=== PATIENT | male | born 1975 | race Asian ===

== ENCOUNTER 2016-11-14 20:44 | Emergency (ER) | payer OTHER ==
[~2016-11-14] VITALS: Ht 170.2 cm; Wt 81.8 kg
[2016-11-14 21:58] VITALS: BP 135/88
== END 2016-11-14 22:15 | disposition home or self-care (01) ==
LOC: EMS 20:46
DX: K02.9 Dental caries, unspecified (principal); Z88.8 Allergy status to other drugs, medicaments and biological substances
CPT/HCPCS: 99283

== ENCOUNTER 2017-01-30 14:00 | Emergency (ER) | payer OTHER ==
[~2017-01-30] VITALS: Ht 170.2 cm; Wt 79.5 kg
[2017-01-30 15:09] LABS: BASOPHILS % (AUTO) 0.2 % (0.0-2.0); EOSINOPHILS % (AUTO) 0.7 % (1.0-6.0); HEMOGLOBIN 15.5 g/dL (13.5-17.5); LYMPHOCYTES # (AUTO) 1.3 K/uL (1.0-4.8); LYMPHOCYTES % (AUTO) 16.8 % (22.0-44.0); MEAN CORPUSCULAR HEMOGLOBIN 30.2 pg (26.0-34.0); MEAN CORPUSCULAR HGB CONC 33.8 G/dL (31.0-37.0); MEAN CORPUSCULAR VOLUME 89 fL (80-100); MONOCYTES # (AUTO) 0.7 K/uL (0.1-1.0); MONOCYTES % (AUTO) 8.3 % (2.0-9.0); NEUTROPHILS # (AUTO) 5.9 K/uL (1.8-7.7); PLATELET COUNT (AUTO) 302 K/uL (150-450); RED BLOOD CELL COUNT(AUTO) 5.15 MIL/uL (4.50-5.90); RED CELL DISTRIBUTION WIDTH 14.4 % (11.5-14.5)
[2017-01-30 15:11] LABS: ANION GAP 9 mmol/L (8-16); CALCIUM, TOTAL 9.3 mg/dL (8.8-10.5); CARBON DIOXIDE 30 mmol/L (22-29); CHLORIDE 103 mmol/L (98-107); CREATININE 1.05 mg/dL (0.60-1.30); GLOMERULAR FILTR. RATE CALC > 60 mL/min (>60); POTASSIUM 4.4 mmol/L (3.5-5.1); SODIUM SERUM 142 mmol/L (136-145); UREA NITROGEN, BLOOD 32 mg/dL (7-18)
[2017-01-30 15:17] LABS: ALANINE AMINOTRANSFERASE 47 U/L (12-78); ALBUMIN 4.2 g/dL (3.4-5.0); ASPARTATE AMINOTRANSFERASE 35 U/L (15-37); BILIRUBIN,TOTAL 0.8 mg/dL (0.1-1.0); TOTAL PROTEIN, SERUM 7.9 g/dL (6.4-8.2)
[2017-01-30] MEDS ORDERED: CloNIDine HCL 0.1 MG TABLET PO ONE (15:30)
[2017-01-30 16:00] VITALS: BP 133/98
== END 2017-01-30 16:35 | disposition home or self-care (01) ==
LOC: EMS 14:04
DX: I10 Essential (primary) hypertension (principal); F17.210 Nicotine dependence, cigarettes, uncomplicated; F12.10 Cannabis abuse, uncomplicated; Z88.8 Allergy status to other drugs, medicaments and biological substances
CPT/HCPCS: 93005; 99285

== ENCOUNTER 2019-04-17 20:26 | Inpatient (IN) | payer OTHER ==
[~2019-04-17] VITALS: Ht 170.2 cm; Wt 84.2 kg
[2019-04-17] MEDS ORDERED: KETOROLAC TROMETHAMINE 30 MG/ML VIAL IVP ONE (22:00)
[2019-04-17] MEDS ORDERED: SODIUM CHLORIDE 0.9% 1,000 ML IV ONE (22:00)
[2019-04-17] MEDS ORDERED: MORPHINE SULFATE 4 MG/ML SYRINGE IVP ONE (22:00)
[2019-04-17] MEDS ORDERED: ONDANSETRON HCL 4 MG/2 ML VIAL IVP ONE (22:00)
[2019-04-17 22:24] LABS: BASOPHILS % (AUTO) 0.2 % (0.0-2.0); EOSINOPHILS % (AUTO) 0 % (1.0-6.0); HEMATOCRIT 46.8 % (41-53); HEMOGLOBIN 15.9 g/dL (13.5-17.5); LYMPHOCYTES # (AUTO) 0.8 K/uL (1.0-4.8); LYMPHOCYTES % (AUTO) 5.3 % (22.0-44.0); MEAN CORPUSCULAR HEMOGLOBIN 29.4 pg (26.0-34.0); MEAN CORPUSCULAR HGB CONC 34.1 G/dL (31.0-37.0); MEAN CORPUSCULAR VOLUME 86 fL (80-100); MONOCYTES # (AUTO) 0.8 K/uL (0.1-1.0); MONOCYTES % (AUTO) 5.8 % (2.0-9.0); NEUTROPHILS % (AUTO) 88.7 % (40.0-70.0); PLATELET COUNT (AUTO) 256 K/uL (150-450); RED BLOOD CELL COUNT(AUTO) 5.42 MIL/uL (4.50-5.90); RED CELL DISTRIBUTION WIDTH 13.9 % (11.5-14.5)
[2019-04-17] MEDS ORDERED: SODIUM CHLORIDE 0.9% 100 ML ONE (22:26)
[2019-04-17] MEDS ORDERED: IOVERSOL 350 MG/ML 100 ML VIAL ONE (22:26)
[2019-04-17 22:32] LABS: ANION GAP 9 mmol/L (8-16); CARBON DIOXIDE 29 mmol/L (22-29); CHLORIDE 99 mmol/L (98-107); CREATININE 0.99 mg/dL (0.60-1.30); GLUCOSE,RANDOM 130 mg/dL (70-110); POTASSIUM 3.9 mmol/L (3.5-5.1); SODIUM SERUM 137 mmol/L (136-145); UREA NITROGEN, BLOOD 16 mg/dL (7-18)
[2019-04-17 22:33] LABS: CALCIUM, TOTAL 9.5 mg/dL (8.8-10.5); GLOMERULAR FILTR. RATE CALC > 60 mL/min (>60)
[2019-04-17 22:38] LABS: ALANINE AMINOTRANSFERASE 44 U/L (12-78); ALBUMIN 4.3 g/dL (3.4-5.0); ALKALINE PHOSPHATASE 55 U/L (46-116); ASPARTATE AMINOTRANSFERASE 34 U/L (15-37); BILIRUBIN,TOTAL 0.6 mg/dL (0.1-1.0); LIPASE 88 U/L (73-393); TOTAL PROTEIN, SERUM 8.4 g/dL (6.4-8.2)
[2019-04-17] MEDS ORDERED: PIPERACILLIN/TAZO 3.375 GM/D5W 50 ML IV ONE (23:15)
[2019-04-17 23:37] LABS: APPEARANCE,URINE CLEAR (CLEAR); BILIRUBIN,URINE NEGATIVE (NEGATIVE); GLUCOSE, URINE (UA) NEGATIVE (NEGATIVE); KETONES,URINE NEGATIVE (NEGATIVE); LEUKOCYTE ESTERASE ,URINE NEGATIVE (NEGATIVE); NITRATE,URINE NEGATIVE (NEGATIVE); OCCULT BLOOD,URINE NEGATIVE (NEGATIVE); PH,URINE 6.5 (5.0-8.0); PROTEIN,URINE NEGATIVE (NEGATIVE); UROBILINOGEN,URINE 0.2 mg/dL (<=1.0)
[2019-04-17] MEDS ORDERED: 0.9% SODIUM CHLORIDE 10 ML SYRINGE IVP PRN (23:45)
[2019-04-17] MEDS ORDERED: ONDANSETRON HCL 4 MG/2 ML VIAL IVP PRN (23:45)
[2019-04-18] MEDS: SODIUM CHLORIDE 0.9% 1,000 ML IV SCH ×3 (00:08→20:43)
[2019-04-18] MEDS ORDERED: SODIUM CHLORIDE 0.9% 1,000 ML IV ONE (00:45)
[2019-04-18] MEDS ORDERED: MORPHINE SULFATE 4 MG/ML SYRINGE IVP ONE (05:30)
[2019-04-18] MEDS ORDERED: MORPHINE SULFATE 10 MG/ML SYRINGE IVP ONE (05:30)
[2019-04-18] MEDS: PIPERACILLIN/TAZO 3.375 GM/D5W 50 ML IV SCH ×3 (05:52→17:47)
[2019-04-18 06:51] LABS: BASOPHILS % (AUTO) 0.1 % (0.0-2.0); EOSINOPHILS % (AUTO) 0.1 % (1.0-6.0); HEMATOCRIT 41.1 % (41-53); HEMOGLOBIN 13.9 g/dL (13.5-17.5); LYMPHOCYTES # (AUTO) 0.9 K/uL (1.0-4.8); LYMPHOCYTES % (AUTO) 7.6 % (22.0-44.0); MEAN CORPUSCULAR HEMOGLOBIN 29.4 pg (26.0-34.0); MEAN CORPUSCULAR HGB CONC 33.9 G/dL (31.0-37.0); MEAN CORPUSCULAR VOLUME 87 fL (80-100); MONOCYTES # (AUTO) 0.5 K/uL (0.1-1.0); MONOCYTES % (AUTO) 4.5 % (2.0-9.0); NEUTROPHILS # (AUTO) 10.4 K/uL (1.8-7.7); PLATELET COUNT (AUTO) 244 K/uL (150-450); RED BLOOD CELL COUNT(AUTO) 4.74 MIL/uL (4.50-5.90)
[2019-04-18 06:54] LABS: NEUTROPHILS % (AUTO) 87.7 % (40.0-70.0)
[2019-04-18] MEDS ORDERED: SODIUM CL IRRIG SOLN BAG 3,000 ML IRRIG ONE (06:59)
[2019-04-18] MEDS ORDERED: BUPIVACAINE 0.25%/EPI 1:200,000/PF 10 ML VIAL ONE (06:59)
[2019-04-18] MEDS ORDERED: FentaNYL CITRATE-PF 100 MCG/2 ML VIAL IVP PRN (07:15)
[2019-04-18] MEDS ORDERED: MEPERIDINE-PF 25 MG/ML VIAL IVP PRN (07:15)
[2019-04-18] MEDS ORDERED: HYDROmorphone 2 MG/ML SYRINGE IVP PRN (07:15)
[2019-04-18 07:16] LABS: ANION GAP 5 mmol/L (8-16); CALCIUM, TOTAL 8.1 mg/dL (8.8-10.5); CARBON DIOXIDE 29 mmol/L (22-29); CHLORIDE 102 mmol/L (98-107); CREATININE 1.11 mg/dL (0.60-1.30); GLOMERULAR FILTR. RATE CALC > 60 mL/min (>60); GLUCOSE,RANDOM 124 mg/dL (70-110); POTASSIUM 4.2 mmol/L (3.5-5.1); SODIUM SERUM 136 mmol/L (136-145); UREA NITROGEN, BLOOD 15 mg/dL (7-18)
[2019-04-18] MEDS: OXYGEN THERAPY IH SCH ×2 (08:00→20:00)
[2019-04-18 09:58] VITALS: BP 133/78
[2019-04-18 11:27] VITALS: BP 140/87
[2019-04-18] MEDS ORDERED: METR500 PO (12:05)
[2019-04-18] MEDS ORDERED: CIPR-278 PO (12:05)
[2019-04-18 15:20] VITALS: BP 121/75
[2019-04-18] MEDS: HYDROCODONE/ACETAMINOPHEN 5-325 MG TABLET PO PRN ×2 (15:46→20:42)
[2019-04-18] MEDS: IBUPROFEN 600 MG TABLET PO SCH (17:47)
[2019-04-18 18:17] LABS: BASOPHILS % (AUTO) 0.2 % (0.0-2.0); EOSINOPHILS % (AUTO) 0 % (1.0-6.0); HEMATOCRIT 39.6 % (41-53); HEMOGLOBIN 13.4 g/dL (13.5-17.5); LYMPHOCYTES % (AUTO) 6.5 % (22.0-44.0); MEAN CORPUSCULAR HEMOGLOBIN 29.3 pg (26.0-34.0); MEAN CORPUSCULAR HGB CONC 33.7 G/dL (31.0-37.0); MEAN CORPUSCULAR VOLUME 87 fL (80-100); MONOCYTES # (AUTO) 0.6 K/uL (0.1-1.0); MONOCYTES % (AUTO) 3.5 % (2.0-9.0); NEUTROPHILS # (AUTO) 14.2 K/uL (1.8-7.7); PLATELET COUNT (AUTO) 229 K/uL (150-450); RED BLOOD CELL COUNT(AUTO) 4.57 MIL/uL (4.50-5.90); RED CELL DISTRIBUTION WIDTH 13.9 % (11.5-14.5)
[2019-04-18 18:18] LABS: NEUTROPHILS % (AUTO) 89.8 % (40.0-70.0)
[2019-04-18 20:09] VITALS: BP 120/74
[2019-04-19 00:15] VITALS: BP 132/84
[2019-04-19] MEDS: PIPERACILLIN/TAZO 3.375 GM/D5W 50 ML IV SCH ×3 (00:32→11:36)
[2019-04-19] MEDS: IBUPROFEN 600 MG TABLET PO SCH ×3 (00:32→11:36)
[2019-04-19 04:15] VITALS: BP 139/90
[2019-04-19] MEDS ORDERED: SUCCINYLCHOLINE CHLORIDE 20 MG/ML 10 ML VIAL IVP ONE (06:00)
[2019-04-19] MEDS ORDERED: METOCLOPRAMIDE HCL 5 MG/ML 2 ML VIAL IVP ONE (06:00)
[2019-04-19] MEDS ORDERED: ONDANSETRON HCL 4 MG/2 ML VIAL IVP ONE (06:00)
[2019-04-19] MEDS ORDERED: PROPOFOL 1% 20 ML VIAL IVP ONE (06:00)
[2019-04-19] MEDS ORDERED: MIDAZOLAM HCL 2 MG/2 ML VIAL IVP ONE (06:00)
[2019-04-19] MEDS ORDERED: LIDOCAINE/PF 2% 5 ML VIAL IM ONE (06:00)
[2019-04-19] MEDS ORDERED: DEXAMETHASONE SOD PHOS 4 MG/ML VIAL IVP ONE (06:00)
[2019-04-19] MEDS ORDERED: KETOROLAC TROMETHAMINE 60 MG/2 ML VIAL IM ONE (06:00)
[2019-04-19] MEDS ORDERED: NEOSTIGMINE METHYLSULFATE 1 MG/ML 10 ML VIAL IVP ONE (06:00)
[2019-04-19] MEDS ORDERED: FentaNYL CITRATE-PF 100 MCG/2 ML VIAL IVP ONE (06:00)
[2019-04-19] MEDS ORDERED: ROCURONIUM BROMIDE 10 MG/ML 5 ML VIAL IVP ONE (06:00)
[2019-04-19] MEDS: SODIUM CHLORIDE 0.9% 1,000 ML IV SCH (06:12)
[2019-04-19 07:48] LABS: BASOPHILS % (AUTO) 0.3 % (0.0-2.0); EOSINOPHILS % (AUTO) 0.6 % (1.0-6.0); HEMATOCRIT 37.2 % (41-53); HEMOGLOBIN 12.7 g/dL (13.5-17.5); LYMPHOCYTES # (AUTO) 1.3 K/uL (1.0-4.8); LYMPHOCYTES % (AUTO) 12.8 % (22.0-44.0); MEAN CORPUSCULAR HEMOGLOBIN 29.7 pg (26.0-34.0); MEAN CORPUSCULAR HGB CONC 34.2 G/dL (31.0-37.0); MEAN CORPUSCULAR VOLUME 87 fL (80-100); MONOCYTES # (AUTO) 0.8 K/uL (0.1-1.0); NEUTROPHILS % (AUTO) 78.3 % (40.0-70.0); PLATELET COUNT (AUTO) 208 K/uL (150-450); RED BLOOD CELL COUNT(AUTO) 4.28 MIL/uL (4.50-5.90); RED CELL DISTRIBUTION WIDTH 14.1 % (11.5-14.5)
[2019-04-19 07:49] VITALS: BP 151/88
[2019-04-19 07:57] LABS: ANION GAP 6 mmol/L (8-16); CALCIUM, TOTAL 8.2 mg/dL (8.8-10.5); CARBON DIOXIDE 30 mmol/L (22-29); CHLORIDE 103 mmol/L (98-107); CREATININE 1.05 mg/dL (0.60-1.30); GLOMERULAR FILTR. RATE CALC > 60 mL/min (>60); GLUCOSE,RANDOM 110 mg/dL (70-110); POTASSIUM 4.3 mmol/L (3.5-5.1); SODIUM SERUM 139 mmol/L (136-145); UREA NITROGEN, BLOOD 15 mg/dL (7-18)
[2019-04-19] MEDS: OXYGEN THERAPY IH SCH (08:00)
[2019-04-19 11:27] VITALS: BP 148/86
== END 2019-04-19 14:20 | disposition home or self-care (01) | DRG 233 ==
LOC: EMS 20:27 → 6N 04-18 00:47
PROVIDERS: ADMIT Internal Medicine; ATTEND Internal Medicine
PROC: 0DTJ4ZZ Resection of Appendix, Percutaneous Endoscopic Approach (ICD-10-PCS; principal; 2019-04-18 07:30)
DX: K35.32 Acute appendicitis with perforation, localized peritonitis, and gangrene, without abscess (principal); R65.10 Systemic inflammatory response syndrome (SIRS) of non-infectious origin without acute organ dysfunction; F17.210 Nicotine dependence, cigarettes, uncomplicated; I10 Essential (primary) hypertension; Z88.8 Allergy status to other drugs, medicaments and biological substances
CPT/HCPCS: 74177; 88304; 96365; 96375; J0330; J0690; J1100; J1885; J2250; J2270; J2405; J2543; J2704; J2765; J3010; J3490; J7030; J7050

== ENCOUNTER 2021-03-22 06:40 | Emergency (ER) | payer OTHER ==
[~2021-03-22] VITALS: Ht 170.2 cm; Wt 79.5 kg
[~2021-03-22 06:40] MED LIST: CIPR-278 PO; METR500 PO
[2021-03-22] MEDS ORDERED: IBUP-2492 PO (06:48)
[2021-03-22] MEDS ORDERED: KETOROLAC TROMETHAMINE 30 MG/ML VIAL IVP ONE (07:15)
[2021-03-22] MEDS ORDERED: ACETAMINOPHEN/CODEINE 300-30 MG TABLET PO ONE (07:15)
[2021-03-22] MEDS ORDERED: CefTRIAXone 1 GM/DEXTROSE 50 ML IV ONE (07:15)
[2021-03-22] MEDS ORDERED: LIDOCAINE 1% 10 ML VIAL INJ ONE (07:15)
[2021-03-22] MEDS ORDERED: DOXYCYCLINE HYCLATE 100 MG TABLET PO ONE (07:15)
[2021-03-22 08:28] VITALS: BP 140/96
== END 2021-03-22 08:29 | disposition home or self-care (01) ==
LOC: EMS 06:43
DX: L03.116 Cellulitis of left lower limb (principal); L02.416 Cutaneous abscess of left lower limb; I10 Essential (primary) hypertension; F12.90 Cannabis use, unspecified, uncomplicated; F17.210 Nicotine dependence, cigarettes, uncomplicated; Z88.8 Allergy status to other drugs, medicaments and biological substances; Z79.899 Other long term (current) drug therapy
CPT/HCPCS: 10060; 96365; 96375; 99284; J0696; J1885; J3490

== ENCOUNTER 2021-09-06 13:48 | Emergency (ER) | payer OTHER ==
[~2021-09-06] VITALS: Ht 170.2 cm; Wt 78.2 kg
[~2021-09-06 13:48] MED LIST changes: +IBUP-2492 PO
[2021-09-06 13:59] VITALS: BP 143/90
[2021-09-06] MEDS ORDERED: IBUPROFEN 600 MG TABLET PO ONE (14:45)
[2021-09-06] MEDS ORDERED: SULFAMETHOX/TRIMETH DS 800-160 MG/TABLET PO ONE (14:45)
[2021-09-06] MEDS ORDERED: CEPHALEXIN MONOHYDRATE 500 MG CAPSULE PO ONE (14:45)
[2021-09-06] MEDS ORDERED: CEPH-558 PO (14:50)
[2021-09-06] MEDS ORDERED: SULF-261 PO (14:52)
[2021-09-06] MEDS ORDERED: IBUP-2070 PO (14:54)
== END 2021-09-06 15:20 | disposition home or self-care (01) ==
LOC: EMS 13:52
DX: L03.114 Cellulitis of left upper limb (principal); L02.414 Cutaneous abscess of left upper limb; I10 Essential (primary) hypertension; F17.210 Nicotine dependence, cigarettes, uncomplicated; F12.90 Cannabis use, unspecified, uncomplicated; Z98.890 Other specified postprocedural states; Z88.8 Allergy status to other drugs, medicaments and biological substances
CPT/HCPCS: 99284; Z7502; Z7610

== ENCOUNTER 2023-05-20 21:24 | Emergency (ER) | payer OTHER ==
[~2023-05-20] VITALS: Ht 170.2 cm; Wt 79.1 kg
[~2023-05-20 21:24] MED LIST changes: +CEPH-558 PO; -CIPR-278 PO; +IBUP-1492 PO; -IBUP-2492 PO; -METR500 PO; +SULF-261 PO
[2023-05-20 23:17] VITALS: BP 145/90; PULSE 98; RESP 18; TEMP 98
[2023-05-20] MEDS ORDERED: CIPOTIC AS (23:25)
[2023-05-20] MEDS ORDERED: IBUP-1492 PO (23:25)
[2023-05-20] MEDS ORDERED: AMOX500C2 PO (23:25)
[2023-05-20] MEDS ORDERED: IBUPROFEN 800 MG TABLET PO ONE (23:30)
[2023-05-20] MEDS ORDERED: CefTRIAXone SODIUM 1 GM/VIAL IM ONE (23:30)
[2023-05-20] MEDS ORDERED: PROPARACAINE HCL 0.5% 15 ML OPHTHALMIC SOLUTION OS ONE (23:30)
[2023-05-20] MEDS ORDERED: LIDOCAINE/PF 1% 2 ML VIAL IM ONE (23:30)
[2023-05-20] MEDS ORDERED: PROPARACAINE HCL 0.5% 15 ML OPHTHALMIC SOLUTION ONE (23:31)
== END 2023-05-20 23:48 | disposition home or self-care (01) ==
LOC: EMS 21:25
DX: H60.92 Unspecified otitis externa, left ear (principal); H66.92 Otitis media, unspecified, left ear; I10 Essential (primary) hypertension; F17.210 Nicotine dependence, cigarettes, uncomplicated; Z90.49 Acquired absence of other specified parts of digestive tract; Z88.8 Allergy status to other drugs, medicaments and biological substances
CPT/HCPCS: 99283; 96372; J0696; J3490

== ENCOUNTER 2023-11-15 09:42 | Emergency (ER) | payer MEDICAID, OTHER ==
[~2023-11-15] VITALS: Ht 170.2 cm; Wt 79.5 kg
[~2023-11-15 09:42] MED LIST changes: +AMOX500C2 PO; -CEPH-558 PO; +CIPOTIC AS; -SULF-261 PO
[2023-11-15 09:49] VITALS: TEMP 98.2
[2023-11-15] MEDS ORDERED: ACET-3385 PO (10:57)
[2023-11-15] MEDS ORDERED: DOXY-354 PO (10:57)
[2023-11-15] MEDS ORDERED: CEPH-558 PO (10:57)
[2023-11-15] MEDS: ACETAMINOPHEN 500 MG TABLET PO ONE (11:00)
[2023-11-15] MEDS: DOXYCYCLINE HYCLATE 100 MG TABLET PO ONE (11:00)
[2023-11-15] MEDS: CEPHALEXIN MONOHYDRATE 500 MG CAPSULE PO ONE (11:00)
[2023-11-15 11:03] VITALS: BP 166/106; PULSE 99; RESP 18
== END 2023-11-15 11:05 | disposition home or self-care (01) ==
LOC: EMS 09:42
DX: L03.113 Cellulitis of right upper limb (principal); F17.210 Nicotine dependence, cigarettes, uncomplicated; I10 Essential (primary) hypertension; Z88.3 Allergy status to other anti-infective agents
CPT/HCPCS: 99284; Z7502; Z7610